=== PATIENT | male | born 1990 | race African-American/Black ===

== ENCOUNTER 2025-01-28 10:39 | Emergency (ER) | payer SELFPAY ==
[2025-01-28 10:50] VITALS: BP 141/90; PULSE 115; RESP 16; TEMP 36.6; O2SAT 100; BMI 21.8
--- NOTE | 2025-01-28 11:08 | ED.PSYCH ---
HPI - Psych <Anne Marie Strong PA-C - Last Filed: 01/28/25 15:30> General Chief Complaint: Psychiatric Symptoms Stated Complaint: wants to detox Time Seen by Provider: 01/28/25 10:56 Source: patient Mode of arrival: Ambulatory History of Present Illness HPI Narrative: Mr. Gonzalez is a pleasant 34-year-old male with a past medical history of PTSD, paranoid schizophrenia on Seroquel, risperidone, hydroxyzine who presents to the emergency department for methamphetamine withdrawal x2 days. 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 He last smoked meth about 2 days ago. He is now feeling anxious. He reports that he smoke cigarettes but he does not use any other substances including marijuana and alcohol. He denies any trauma or pain currently. States that [facility] in [place] prescribe some his mental health medication and he has been compliant with these. He denies any suicidal or homicidal ideations. He denies any hallucinations. He denies previously being admitted to [facility]. Related Data Allergies Allergy/AdvReac Type Severity Reaction Status Date / Time No Known Drug Allergies Allergy Verified 01/28/25 10:50 Review of Systems <Anne Marie Strong PA-C - Last Filed: 01/28/25 15:30> Review of Systems ROS Unobtainable: All systems reviewed & are unremarkable except as noted in HPI and below Patient History <Anne Marie Strong PA-C - Last Filed: 01/28/25 15:30> Social History Smoking Status: Current every day smoker Smoking Status: Current every day smoker Exam <Anne Marie Strong PA-C - Last Filed: 01/28/25 15:30> Narrative Exam Narrative: GENERAL: 34 year old male appears stated age. In no acute distress. HEAD: Atraumatic. Normocephalic. EYES: PERRL. Extraocular motions intact. No scleral icterus. No injection or drainage. NECK: Trachea midline. Cervical ROM intact. CARDIOVASCULAR: Increased rate, regular rhythm RESPIRATORY: ?Nonlabored respirations. ?Speaking in clear, full sentences. ?Clear to auscultation. Breath sounds equal bilaterally. No wheezes, rales, or rhonchi. ? BACK: Nontender without deformity or crepitance. No flank tenderness. NEURO: AOx3. ?Clear speech. ?Answers questions appropriately. PSYCH: Withdrawn. Denies SI/HI. SKIN: No rash or erythema of visible areas Initial Vital Signs Initial Vital Signs: Vital Signs Temperature 97.8 F 01/28/25 10:50 Pulse Rate 115 H 01/28/25 10:50 Respiratory Rate 16 01/28/25 10:50 Blood Pressure 141/90 H 01/28/25 10:50 Pulse Oximetry 100 01/28/25 10:50 Oxygen Delivery Method Room Air 01/28/25 10:50 <Brenda Mckay DO - Last Filed: 01/29/25 07:15> Initial Vital Signs Initial Vital Signs: Vital Signs Temperature 97.8 F 01/28/25 10:50 Pulse Rate 115 H 01/28/25 10:50 Respiratory Rate 16 01/28/25 10:50 Blood Pressure 141/90 H 01/28/25 10:50 Pulse Oximetry 100 01/28/25 10:50 Oxygen Delivery Method Room Air 01/28/25 10:50 Course <Anne Marie Strong PA-C - Last Filed: 01/28/25 15:30> Orders Ordered: Discontinued Medications Lorazepam (Lorazepam 0.5 Mg Tablet) 0.5 mg PO PRN PRN PRN Reason: anxiety Last Admin: 01/28/25 14:32 Dose: 0.5 mg Documented By: Admin: 01/28/25 13:34 Dose: 0.5 mg Documented By: DAIN Vital Signs Vital signs: Vital Signs - 8 hr 01/28/25 10:50 01/28/25 14:26 Temperature 97.8 F Pulse Rate 115 H 103 H Respiratory Rate 16 16 Blood Pressure 141/90 H 135/90 Pulse Oximetry 100 97 Oxygen Delivery Method Room Air Room Air <Brenda Mckay DO - Last Filed: 01/29/25 07:15> Orders Ordered: Discontinued Medications Lorazepam (Lorazepam 0.5 Mg Tablet) 0.5 mg PO PRN PRN PRN Reason: anxiety Last Admin: 01/28/25 14:32 Dose: 0.5 mg Documented By: Admin: 01/28/25 13:34 Dose: 0.5 mg Documented By: DAIN Vital Signs Vital signs: Vital Signs - 8 hr 01/28/25 10:50 01/28/25 14:26 Temperature 97.8 F Pulse Rate 115 H 103 H Respiratory Rate 16 16 Blood Pressure 141/90 H 135/90 Pulse Oximetry 100 97 Oxygen Delivery Method Room Air Room Air MDM - Psych <Anne Marie Strong PA-C - Last Filed: 01/28/25 15:30> Medical Records Medical records narrative: None available. Lab Data 01/28/25 12:00 01/28/25 12:00 Labs: Lab Results 01/28/25 01/28/25 Range/Units 11:51 12:00 WBC 6.4 (4.5-11.0) X10^3/uL RBC 4.50 (4.5-5.9) X10^6/uL Hgb 13.9 (13.5-17.5) g/dL Hct 41.0 (41-53) % MCV 91.1 (80-100) fL MCH 30.8 (26-34) PG MCHC 33.7 (30-36) % RDW 13.4 (11.6-14.8) % Plt Count 286 (150-400) X10^3/uL Neut % (Auto) 55.3 (50-75) % Lymph % (Auto) 33.6 (25-40) % Winn % (Auto) 9.1 (3-14) % Eos % (Auto) 1.1 L (2-4) % Baso % (Auto) 0.9 (0-2) % Neut # (Auto) 3500 (9646-6595) /uL Lymph # (Auto) 2100 (1072-8171) /uL Winn # (Auto) 600 (0-900) /uL Eos # (Auto) 100 (0-450) /uL Baso # (Auto) 100 (0-100) /uL Sodium 141 (137-145) mmol/L Potassium 3.9 (3.4-5.1) mmol/L Chloride 107 (98-107) mmol/L Carbon Dioxide 19 L (22-32) mmol/L BUN 11 (9-20) mg/dL Creatinine 0.81 (0.66-1.25) mg/dL Estimated GFR > 60 (>60) mL/min BUN/Creatinine Ratio 13.6 (6-22) Glucose 123 H (70-99) mg/dL Calcium 9.2 (8.4-10.2) mg/dL Total Bilirubin 0.2 (0.2-1.3) mg/dL AST 28 (17-59) IU/L ALT 24 (<50) IU/L Alkaline Phosphatase 146 H (38-126) U/L Total Protein 8.4 H (6.3-8.2) g/dL Albumin 4.8 (3.5-5.0) g/dL Globulin 3.6 (1.7-4.1) g/dL Albumin/Globulin Ratio 1.3 (1.0-2.8) TSH 0.82 (0.47-4.68) uIU/mL Urine RBC None seen (0-5/HPF) Urine WBC None seen (0-5/HPF) Ur Squamous Epith Cells 0-1 /hpf (0-5/HPF) Urine Bacteria Occasional (0-1) (None) Ur Culture Indicated? Cult not indicated Vol Urine Centrifuged 10ml (spun) U Opiates 300ng/mL cut Negative (Negative) Ur Oxycodone Screen Negative (Negative) Urine Methadone Screen Negative (Negative) Ur Barbiturates Screen Negative (Negative) U Tricyclic Antidepress Negative (Negative) Ur Phencyclidine Scrn Negative (Negative) Ur Amphetamines Screen Positive H (Negative) U Methamphetamines Scrn Positive H (Negative) Ur MDMA Scrn (Ecstasy) Negative (Negative) U Benzodiazepines Scrn Negative (Negative) Urine Cocaine Screen Negative (Negative) U Marijuana (THC) Screen Negative (Negative) Urine pH Normal (Normal) Urine Specific [place] Normal (Normal) Ethyl Alcohol < 10 (<10) mg/dL Ur Creatinine Normal (Normal) SARS-CoV-2 (PCR) Negative (Negative) Urine Dip Bedside Urine Glucose Negative Bedside Urine Bilirubin - Negative Bedside Urine Ketone - Negative Urine Specific [place] 1.010 Bedside Urine Occult Blood ++ Bedside Urine pH 6.0 Bedside Urine Protein - Negative Bedside Urine Urobilinogen - Negative Bedside Urine Nitrite - Negative Bedside Urine Leukocytes - Negative Esterase ECG Data Interpretation: EKG reveals sinus tachycardia with a rate of 109 beats per minute. QTC 425. No ST segment elevation or depression. MDM Narrative Medical decision making narrative: 34-year-old male with a past medical history of PTSD, paranoid schizophrenia on Seroquel, risperidone, hydroxyzine who presents to the emergency department for methamphetamine withdrawal x2 days. Differential diagnosis includes but is not limited to polysubstance use, methamphetamine withdrawal, anxiety, schizophrenia, PTSD, electrolyte derangement, etc. On exam the patient is in no acute distress, nontoxic appearing, vital signs do reveal elevated heart rate 115. He is afebrile. He reports that he has not used meth in 2 days and he is feeling anxious and would like to go to [facility]. We will obtain baseline labs, COVID test, EKG. Treat with Ativan PRN however patient declines medication at this time. Labs reveal normal WBC count 6.4, hemoglobin 13.9, platelets 286. Sodium 141, potassium 3.9, BUN 11 creatinine 0.81. Glucose 123. Total bili normal 0.2, AST 28, ALT 24, very slight elevation alkaline phosphatase 146. Urine positive for amphetamines and methamphetamines as expected. Alcohol negative. EKG shows sinus tachycardia. I do believe patient would benefit from inpatient psychiatric care for further management of his methamphetamine use, paranoid schizophrenia. He is agreeable to voluntary admission. He has been accepted at [facility]. He has received 0.5 mg oral Ativan here and he is feeling much better, all questions answered, stable for discharge. <Brenda Mckay, - Last Filed: 01/29/25 07:15> Lab Data Labs: Lab Results 01/28/25 01/28/25 Range/Units 11:51 12:00 WBC 6.4 (4.5-11.0) X10^3/uL RBC 4.50 (4.5-5.9) X10^6/uL Hgb 13.9 (13.5-17.5) g/dL Hct 41.0 (41-53) % MCV 91.1 (80-100) fL MCH 30.8 (26-34) PG MCHC 33.7 (30-36) % RDW 13.4 (11.6-14.8) % Plt Count 286 (150-400) X10^3/uL Neut % (Auto) 55.3 (50-75) % Lymph % (Auto) 33.6 (25-40) % Winn % (Auto) 9.1 (3-14) % Eos % (Auto) 1.1 L (2-4) % Baso % (Auto) 0.9 (0-2) % Neut # (Auto) 3500 (1917-5940) /uL Lymph # (Auto) 2100 (7158-4620) /uL Winn # (Auto) 600 (0-900) /uL Eos # (Auto) 100 (0-450) /uL Baso # (Auto) 100 (0-100) /uL Sodium 141 (137-145) mmol/L Potassium 3.9 (3.4-5.1) mmol/L Chloride 107 (98-107) mmol/L Carbon Dioxide 19 L (22-32) mmol/L BUN 11 (9-20) mg/dL Creatinine 0.81 (0.66-1.25) mg/dL Estimated GFR > 60 (>60) mL/min BUN/Creatinine Ratio 13.6 (6-22) Glucose 123 H (70-99) mg/dL Calcium 9.2 (8.4-10.2) mg/dL Total Bilirubin 0.2 (0.2-1.3) mg/dL AST 28 (17-59) IU/L ALT 24 (<50) IU/L Alkaline Phosphatase 146 H (38-126) U/L Total Protein 8.4 H (6.3-8.2) g/dL Albumin 4.8 (3.5-5.0) g/dL Globulin 3.6 (1.7-4.1) g/dL Albumin/Globulin Ratio 1.3 (1.0-2.8) TSH 0.82 (0.47-4.68) uIU/mL Urine RBC None seen (0-5/HPF) Urine WBC None seen (0-5/HPF) Ur Squamous Epith Cells 0-1 /hpf (0-5/HPF) Urine Bacteria Occasional (0-1) (None) Ur Culture Indicated? Cult not indicated Vol Urine Centrifuged 10ml (spun) U Opiates 300ng/mL cut Negative (Negative) Ur Oxycodone Screen Negative (Negative) Urine Methadone Screen Negative (Negative) Ur Barbiturates Screen Negative (Negative) U Tricyclic Antidepress Negative (Negative) Ur Phencyclidine Scrn Negative (Negative) Ur Amphetamines Screen Positive H (Negative) U Methamphetamines Scrn Positive H (Negative) Ur MDMA Scrn (Ecstasy) Negative (Negative) U Benzodiazepines Scrn Negative (Negative) Urine Cocaine Screen Negative (Negative) U Marijuana (THC) Screen Negative (Negative) Urine pH Normal (Normal) Urine Specific [place] Normal (Normal) Ethyl Alcohol < 10 (<10) mg/dL Ur Creatinine Normal (Normal) SARS-CoV-2 (PCR) Negative (Negative) Urine Dip Bedside Urine Glucose Negative Bedside Urine Bilirubin - Negative Bedside Urine Ketone - Negative Urine Specific [place] 1.010 Bedside Urine Occult Blood ++ Bedside Urine pH 6.0 Bedside Urine Protein - Negative Bedside Urine Urobilinogen - Negative Bedside Urine Nitrite - Negative Bedside Urine Leukocytes - Negative Esterase Discharge Plan Departure Patient Disposition: Xfer Psychiatric Hosp Clinical Impression: Methamphetamine use, Paranoid schizophrenia ED Sign-out <Brenda Mckay, - Last Filed: 01/29/25 07:15> Cosign ED Attending Cosignature Attestation: I was available for consultation.
--- NOTE | 2025-01-28 11:40 | EKG_ITS ---
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
[2025-01-28 12:07] LABS: Ur Specific Gravity Normal (Normal)
[2025-01-28 12:08] LABS: UR Morphine/Opiate cutoff 300 Negative (Negative); Urine MDMA Negative (Negative); Urine Methamphetamines Positive (Negative); Urine Tetrahydrocannabinol Negative (Negative)
[2025-01-28 12:09] LABS: Urine Tricyclic Antidepressant Negative (Negative)
[2025-01-28 12:15] LABS: COVID19 -Nasal RAPID Negative (Negative)
[2025-01-28 12:21] LABS: Add Manual Diff / Slide Review NO; Hematocrit 41.0 % (41-53); Hemoglobin 13.9 g/dL (13.5-17.5); Lymphocytes Absolute Auto 2100 /uL (1100-4500); Mean Corpuscular HGB Conc 33.7 % (30-36); Mean Corpuscular Hemoglobin 30.8 PG (26-34); Mean Corpuscular Volume 91.1 fL (80-100); Platelet Count 286 X10^3/uL (150-400)
[2025-01-28 12:36] LABS: Alanine Aminotransferase 24 IU/L (<50); Albumin 4.8 g/dL (3.5-5.0); Albumin Globulin Ratio 1.3 (1.0-2.8); Alkaline Phosphatase 146 U/L (38-126); Blood Urea Nitrogen 11 mg/dL (9-20); Calcium 9.2 mg/dL (8.4-10.2); Carbon Dioxide 19 mmol/L (22-32); Chloride 107 mmol/L (98-107); Estimated Glomerular Filt Rate > 60 mL/min (>60); Ethanol (ETOH) < 10 mg/dL (<10); Globulin 3.6 g/dL (1.7-4.1); Glucose 123 mg/dL (70-99); HEMOLYSIS 19 (0-50); Potassium 3.9 mmol/L (3.4-5.1); Sodium 141 mmol/L (137-145); Total Protein 8.4 g/dL (6.3-8.2)
[2025-01-28 13:05] LABS: TSH w/ Reflex to FT4 0.82 uIU/mL (0.47-4.68)
[2025-01-28 13:16] LABS: Culture Indicated Urine Cult Not Indicated
[2025-01-28 14:26] VITALS: BP 135/90; PULSE 103; RESP 16; O2SAT 97
--- NOTE | 2025-01-28 14:30 | PC.NURSE ---
Patient walks out into ambulance bay without notifying staff. This RN and BIOANALYST Rayna go talk with patient. He states I just needed some air. Patient comes back into ED. Education given on staying within ED or notifying staff if he wants to leave. Provider Woody made aware.
--- NOTE | 2025-01-28 15:14 | CM.SWNOTE ---
ED LACQUER SIZER Assessment Note: LACQUER SIZER - Antenna Engineer Assessment LACQUER SIZER/Antenna Engineer Assessment Time Spent with Patient Start date 01/28/25 Visit Start Time 14:00 End date 01/28/25 Visit End Time 14:30 Total time Care 30 minutes total Management spent on patient visit-in minutes Mental Health Screening Include Onset, Duration, Intensity Presenting Problem Patient presented to the ED seeking voluntary treatment for methamphetamine detox. Patient has a history of PTSD and paranoid schizophrenia. Precipitating Event( Patient states he last used approximately 2 days ago s) and is hoping to detox. Patient states he has been compliant with his medications but still feels unstable and unsafe with detoxing in the community. He is currently staying at the [facility] in [place], [place]. Patient Strengths Patient is communicative and seeking help. He appears well kempt and cooperative. Current Behavioral None reported. Health Provider(s) Include Facility, Provider, Ph. # Psych. Hx Mental Patient has a history of PTSD and paranoid Health and Chemical schizophrenia, he says he is on medications for this; Dependency managed by a PCP. Family Hx of None reported. Behavioral Abuse Psychiatric Hx of Detox at [facility] Detox. Hospitalizations ( date(s)/location) Psychosocial Patient is a 34yo male, houseless individual in [facility]. 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 School/Work Currently unemployed. Legal Concerns Legal Matters - None reported. Outstanding Issues Mental Status Orientation (Person/ AOx3 Place/Time) Stated Mood Not too good. Affect (Congruent Anxious, congruent with mood with Mood?) Thought Content - None reported. States some paranoia. Specify/Describe Obsessions, Delusions, Hallucinations Thought Processes ( Logical, coherent Logical-Coherent- Goal Directed- Detailed-Tangential- Circumstantial- Logical-Disorganized -Thought Blocking) Speech (Normal-Slow- Normal, soft Irdqtps-Dwonu-Bigy- Loud-Pressured) Motor (Normal- Normal Bnpsamnif-Zlfr-Usfxq ) Insight (Good-Fair- Good Poor/Limited) Judgement (Good-Fair Good -Poor/Limited) Impulse Control ( Impaired Adequate-Impaired) Memory (Immediate- Intact Recent-Remote, Impaired-Intact) Concentration ( Intact Intact-Impaired) Attention (Intact- Intact Impaired) Behavior ( Appropriate Appropriate- Inappropriate) Additional Comment Patient is calm, cooperative and communicative during assessment. Risk Assessment Suicidal Ideation ( No Plan) Homicidal Ideation ( No Plan) Comment [place]-SUICIDE SEVERITY RATING SCALE 1) Have you wished you were or wished you could go to sleep and not wake up? NO 2) Have you actually had any thoughts of killing yourself? NO 3) Have you been thinking about how you might do this? NO 4) Have you had these thoughts and had some intention of acting on them? NO 5) Have you started to work out or worked out the details of how to kill yourself? Do you intend to carry out this plan? NO 6) Have you ever done anything, started to do anything, or prepared to do anything to end your life? NO If YES, ask: Was this within the past three months? NO Intervention Intervention Reviewed chart and discussed with ED Provider pt's medical status and discharge needs. ED LACQUER SIZER meets with patient. Patient endorses feeling unsafe with detoxing in the community without assistance. ED LACQUER SIZER and patient discuss goals of care. Patient explains they are agreeable to receive inpatient behavioral health/ [facility] hospitalization at this time. At this time, it is the opinion of this LACQUER SIZER that patient would benefit from inpatient psychiatric hospitalization for meth detox and paranoia to obtain crisis stabilization. LACQUER SIZER informs ED provider, Anne Marie Strong PA-C, who indicates agreement. LACQUER SIZER informs NENO Yepez. Plan RA Plan Once patient is medically clear, ED staff will attempt to find inpatient placement for patient. CABRERA Youssef
--- NOTE | 2025-01-28 15:15 | CM.SWNOTE ---
ED RETAIL BUSINESS MANAGER Note: ED RETAIL BUSINESS MANAGER initiated bed search for inpatient detox treatment. RETAIL BUSINESS MANAGER calls [facility], it was reported that there are beds available, RETAIL BUSINESS MANAGER completed phone screen on pt's behalf. RETAIL BUSINESS MANAGER sent packet for review. RETAIL BUSINESS MANAGER received call from [facility], Intake reports patient is accepted for inpatient treatment, they are requesting patient to arrive at their facility after 1500. Provider: Dr. Marlee Fine MD RN-RN Report#: [phone] RETAIL BUSINESS MANAGER called [facility] and coordinated BLS transport for patient from ED at 1600, to arrive at facility at 1720. RETAIL BUSINESS MANAGER notified pt of above coordination, he verbalized agreement and understanding. Plan: Anticipating discharge to [facility] via BLS transport at 1600, ED to coordinate discharge. ZONIA YoussefSW
[2025-01-28 16:50] VITALS: BP 139/94; PULSE 89; RESP 18; O2SAT 98
== END 2025-01-28 16:50 ==
PROVIDERS: Emergency Provider Physician Assistant
DX: F20.0 Paranoid schizophrenia (principal); F15.10 Other stimulant abuse, uncomplicated
CPT/HCPCS: 36415; 80053; 80305; 80320; 81003; 81015; 84443; 85025; 87635; 93005; 99284